=== PATIENT | female | born 1970 | race Caucasian/White ===

== ENCOUNTER 2021-03-23 13:26 | Observation (INO) ==
[2021-03-23] MEDS ORDERED: Acetaminophen 325 MG TABLET PO PRN (17:38)
[2021-03-23] MEDS ORDERED: Ondansetron ODT 4 MG TAB.RAPDIS SL PRN (17:38)
[2021-03-23] MEDS: *HR* HYDROmorphone (PF) 1 MG/ML SYRINGE IVP PRN (19:45)
[2021-03-23] MEDS: Ringers Solution, Lactated 1,000 ML IVC SCH (19:45)
[2021-03-23] MEDS: *HR* OxyCODONE Immed Rel 5 MG TABLET PO PRN (23:43)
[2021-03-24] MEDS: *HR* HYDROmorphone (PF) 1 MG/ML SYRINGE IVP PRN (02:04)
[2021-03-24] MEDS ORDERED: *HR* HYDROmorphone (PF) 1 MG/ML SYRINGE IVP ONE (04:26)
[2021-03-24] MEDS ORDERED: *HR* Promethazine 25 MG/ML VIAL IM PRN (04:29)
[2021-03-24 07:19] LABS: Hematocrit 31.4 % (35.3-44.9); Hemoglobin 9.6 g/dL (11.5-15.4); Mean Corpuscular HGB Conc 30.6 g/dL (31.6-35.5); Mean Corpuscular Hemoglobin 28.1 pg (28.0-33.3); Mean Corpuscular Volume 91.8 fL (83.0-100.0); Mean Platelet Volume 9.8 fL (9.4-12.4); Platelet Count 343 K/mcL (140-400); Red Blood Count 3.42 M/mcL (3.82-4.97); Red Cell Distribution Width 14.1 % (11.5-14.5); White Blood Count 13.8 K/mcL (4.3-11.1)
[2021-03-24] MEDS: Ringers Solution, Lactated 1,000 ML IVC SCH (07:19)
[2021-03-24 07:39] LABS: BUN/Creatinine Ratio 21 (6-26); Blood Urea Nitrogen 24 mg/dL (6-20); Calcium 9.2 mg/dL (8.6-10.3); Carbon Dioxide 28 mEq/L (23-29); Chloride 106 mEq/L (98-107); Glucose 140 mg/dL (70-105); Osmolality,Calculated 294 (280-300); Sodium 139 mEq/L (136-145); eGFR For African Americans > 60 (> 60); eGFR For Non-African Americans 51 (> 60)
[2021-03-24] MEDS ORDERED: *HR* Midazolam HCl 2 MG/2 ML VIAL ONE (08:52)
[2021-03-24] MEDS ORDERED: *HR* Propofol 200 MG/20 ML VIAL IVP ONE (08:52)
[2021-03-24] MEDS ORDERED: *HR* FentaNYL (PF) 100 MCG/2 ML VIAL ONE (08:52)
[2021-03-24] MEDS ORDERED: Lidocaine -MPF 2% 2 ML VIAL ONE (08:53)
[2021-03-24] MEDS ORDERED: Ondansetron 4 MG/2 ML VIAL ONE (08:53)
[2021-03-24] MEDS: *HR* OxyCODONE Immed Rel 5 MG TABLET PO PRN (08:58)
[2021-03-24] MEDS ORDERED: *HR* FentaNYL (PF) 100 MCG/2 ML VIAL IVP PRN (10:12)
[2021-03-24] MEDS ORDERED: Nitroglycerin 0.4 MG TAB.SUBL SL PRN (10:12)
[2021-03-24] MEDS ORDERED: Albuterol 2.5 MG/3 ML NEBULIZER IH PRN (10:12)
[2021-03-24] MEDS ORDERED: Ondansetron 4 MG/2 ML VIAL IVP PRN ×2 (10:12→12:44)
[2021-03-24] MEDS ORDERED: Naloxone 0.4 MG/ML INJ IVP PRN ×2 (10:12→12:44)
[2021-03-24] MEDS ORDERED: Isovue-300 50ML VIAL ONE (10:14)
[2021-03-24] MEDS ORDERED: *HR* HYDROmorphone PF 0.5 MG/0.5 ML SYRINGE IVP PRN (10:19)
[2021-03-24] MEDS ORDERED: *HR* Belladonna Alkaloids/Opium 60 MG RECTAL SUPPOSITORY RC ONE (10:28)
[2021-03-24] MEDS ORDERED: *HR* Succinylcholine 200 MG/10 ML VIAL IVP ONE (10:48)
[2021-03-24] MEDS ORDERED: Lidocaine HCL 4 ML Topical Solution (Laryng-O-Jet Kit Sterile Pak) TP ONE (10:54)
[2021-03-24] MEDS ORDERED: *HR* Belladonna Alkaloids/Opium 60 MG RECTAL SUPPOSITORY RC PRN (11:15)
[2021-03-24] MEDS ORDERED: ceFAZolin 2,000 MG in Water for inj. (sterile) 20 ML IVP ONE (11:18)
[2021-03-24] MEDS ORDERED: Acetaminophen 325 MG TABLET PO PRN (12:44)
[2021-03-24] MEDS ORDERED: Ibuprofen 400 MG TABLET PO PRN (12:44)
[2021-03-24] MEDS ORDERED: *HR* OxyCODONE Immed Rel 5 MG TABLET PO PRN (12:44)
[2021-03-24] MEDS ORDERED: Ringers Solution, Lactated 1,000 ML IVC SCH (12:44)
[2021-03-24] MEDS ORDERED: Fluticasone Propionate Nasal 50 MCG/SPRAY BOTTLE NS PRN ×2 (12:44→15:15)
[2021-03-24] MEDS: Famotidine 20 MG TABLET PO SCH (20:56)
[2021-03-25 01:26] LABS: Hematocrit 30.8 % (35.3-44.9); Hemoglobin 9.9 g/dL (11.5-15.4); Mean Corpuscular HGB Conc 32.1 g/dL (31.6-35.5); Mean Corpuscular Hemoglobin 28.9 pg (28.0-33.3); Mean Corpuscular Volume 89.8 fL (83.0-100.0); Mean Platelet Volume 10.1 fL (9.4-12.4); Platelet Count 341 K/mcL (140-400); Red Blood Count 3.43 M/mcL (3.82-4.97); White Blood Count 12.4 K/mcL (4.3-11.1)
[2021-03-25 01:44] LABS: Alanine Aminotransferase 18 Units/L (7-52); Albumin 3.6 g/dL (3.5-5.7); Albumin/Globulin Ratio 1.3 (1.1-2.2); Alkaline Phosphatase 54 Units/L (34-104); Aspartate Amino Transferase 15 Units/L (13-39); BUN/Creatinine Ratio 20 (6-26); Bilirubin,Total 0.2 mg/dL (0.3-1.0); Blood Urea Nitrogen 17 mg/dL (6-20); Calcium 9.7 mg/dL (8.6-10.3); Carbon Dioxide 25 mEq/L (23-29); Chloride 106 mEq/L (98-107); Globulin 2.8 g/dL (2.4-3.5); Glucose 155 mg/dL (70-105); Osmolality,Calculated 289 (280-300); Potassium 4.2 mEq/L (3.5-5.1); Sodium 137 mEq/L (136-145); Total Protein 6.4 g/dL (6.4-8.9); eGFR For African Americans > 60 (> 60); eGFR For Non-African Americans > 60 (> 60)
[2021-03-25 06:50] VITALS: BP 120/76
[2021-03-25] MEDS: Famotidine 20 MG TABLET PO SCH (07:47)
[2021-03-25] MEDS ORDERED: Loratadine 10 MG TABLET PO SCH (09:00)
[2021-03-28 09:18] LABS: Calculi Mass 35 mg
== END 2021-03-25 10:58 | disposition home or self-care (01) ==
LOC: 3BNU → SUATTDRO 16:23
PROVIDERS: ADMIT Internal Medicine; ATTEND Registered Nurse